=== PATIENT | male | born 1935 | race Caucasian/White ===

== ENCOUNTER 2020-10-25 07:07 | Inpatient (IN) | payer MEDICARE, BC ==
[~2020-10-25] VITALS: Ht 175.3 cm; Wt 95.7 kg
[2020-10-25] MEDS ORDERED: ALFU10TA10 PO (08:15)
[2020-10-25] MEDS ORDERED: ATOR20TA PO (08:15)
[2020-10-25] MEDS ORDERED: APIX5TAB PO (08:15)
[2020-10-25] MEDS ORDERED: POTA10CA43 PO (08:15)
[2020-10-25] MEDS ORDERED: FURO-152 PO (08:15)
[2020-10-25] MEDS ORDERED: LOSA50TA39 PO (08:15)
--- NOTE | 2020-10-25 08:16 | NUR ---
Dr Ortiz at the bedside for MSE.
[2020-10-25 08:24] LABS: HEMATOCRIT 44.2 % (36.7-47.1); MEAN CORPUSCULAR HEMOGLOBIN 32.4 uug (23.8-33.4); PLATELET COUNT (AUTO) 131 K/uL (152-348)
[2020-10-25 08:33] LABS: CARBON DIOXIDE 28 mmol/L (21-32); CHLORIDE 102 mmol/L (98-107); CREATININE 1.4 mg/dL (0.6-1.3); GLUCOSE 133 mg/dL (74-106); POTASSIUM 4.3 mmol/L (3.5-5.1); UREA NITROGEN, BLOOD 16 mg/dL (7-18)
[2020-10-25 08:34] LABS: ABG BASE EXCESS 2.3 mmol/L; ABG HCO3 25.6 mmol/L; ABG PCO2 35.6 mmHg (35.0-45.0); ABG PH 7.474 (7.350-7.450); ABG PO2 76.9 mmHg (75.0-100.0); ABG SITE LEFT RADIAL; ABG TOTAL HEMOGLOBIN 15.3 G/dL (13.5-18.0); COHb 1.3 % (0.5-1.5); MetHb 0.2 % (0.0-1.5); O2Hb 94.6 % (94.0-97.0); VENT MODE Nasal Cannula
[2020-10-25 08:54] LABS: ALANINE AMINOTRANSFERASE 49 U/L (16-63); ALKALINE PHOSPHATASE 76 U/L (50-136); ASPARTATE AMINOTRANSFERASE 42 U/L (15-37); BILIRUBIN,DIRECT 0.2 mg/dL (0.0-0.2); BILIRUBIN,TOTAL 0.7 mg/dL (0.2-1.0); TOTAL PROTEIN, SERUM 6.3 g/dL (6.4-8.2)
[2020-10-25 09:20] LABS: *BILIRUBIN,URIN NEGATIVE (NEGATIVE); *BLOOD, URINE NEGATIVE (NEGATIVE); *CLARITY,URINE CLEAR (CLEAR); *COLOR,URINE YELLOW (YELLOW); *KETONES,URINE NEGATIVE (NEGATIVE); *UROBILINOGEN,URINE 0.2 E.U./dl (NORMAL); LEUKOCYTE ESTERASE ,URINE NEGATIVE (NEGATIVE); NITRITE, URINE NEGATIVE (NEGATIVE); PH,URINE 5.5 (5.0-8.0); UGLUCOSE NEGATIVE (NEGATIVE)
[2020-10-25] MEDS ORDERED: hydrALAZINE HCL 20 MG/1 ML VIAL IV PRN (09:30)
[2020-10-25] MEDS ORDERED: LABETALOL HCL 100 MG/20 ML VIAL IV PRN (09:30)
[2020-10-25] MEDS ORDERED: DEXAMETHASONE SOD PHOSPHATE 4 MG INJ IV ONE (09:45)
[2020-10-25] MEDS ORDERED: AZITHROMYCIN 250 MG TABLET PO ONE (09:45)
[2020-10-25] MEDS ORDERED: CEFTRIAXONE 1 G in IV DEXTROSE 5% 50 ML IV ONE (09:45)
[2020-10-25] MEDS ORDERED: AZITHROMYCIN 250 MG TABLET ONE (09:46)
[2020-10-25] MEDS ORDERED: DEXAMETHASONE SOD PHOSPHATE 10 MG INJ ONE (09:47)
[2020-10-25] MEDS ORDERED: CEFTRIAXONE /D5W 50ML IVPB **ER PYXIS IV ONE (09:47)
--- NOTE | 2020-10-25 09:51 | NUR ---
MUMTAZ FARRIS spoke to DR Shelley for TELE admit.
[2020-10-25] MEDS ORDERED: FLUTICASONE/VILANTEROL 1 EACH BLST.W.DEV INH SCH (10:30)
[2020-10-25] MEDS ORDERED: LOSARTAN POTASSIUM 50 MG TABLET PO SCH (10:30)
[2020-10-25] MEDS ORDERED: ALBUTEROL SULFATE 8 GM HFA.AER.AD IH PRN (10:30)
[2020-10-25] MEDS ORDERED: MAGNESIUM HYDROXIDE 30 ML LIQUID UDC PO PRN (11:45)
[2020-10-25] MEDS ORDERED: ONDANSETRON 4 MG/2 ML VIAL IV PRN (11:45)
[2020-10-25 12:00] VITALS: BP 122/74
--- NOTE | 2020-10-25 12:00 | NUR ---
Received this 85 yo male admission from ER per [facility], with the chief complaint of shortness of breath with cough, congestion, sore throat, fever, body aches. Diagnosis of Covid 19 Pneumonia; Afib. Transferred to bed comfortably. Routine admission care rendered. Awake, alert, oriented x 4, able to move all extremities on purpose and ambulate. Placed on Telemetry - Afib. O2 at 3L/NC with O2 sat of 94%. Poor appetite.
[2020-10-25] MEDS: FUROSEMIDE 20 MG TABLET PO SCH (13:23)
[2020-10-25] MEDS: POTASSIUM CHLORIDE 10 MEQ TAB.PRT.SR PO SCH (13:23)
[2020-10-25] MEDS: APIXABAN 5 MG TABLET PO SCH ×2 (13:24→21:22)
[2020-10-25] MEDS: ACETAMINOPHEN 325 MG TABLET PO PRN (13:49)
[2020-10-25 14:23] LABS: RBC,URINE 0-3 /HPF (0-3); WBC,URINE 0-3 /HPF (0-3)
[2020-10-25 14:24] LABS: BACTERIA,URINE NONE SEEN /HPF (NONE SEEN); SQUAMOUS EPITHELIAL CELL,UR FEW /HPF (NONE SEEN)
[2020-10-25 15:45] VITALS: BP_SYST 101; BP_SYST 140; BP_SYST 148; BP_DIAS 55; BP_DIAS 81
--- NOTE | 2020-10-25 16:00 | NUR ---
Family requested for transfer to [facility]. and CM informed. Process initiated.
[2020-10-25] MEDS ORDERED: LIDOCAINE VISCUS 2% 15 ML UDC MM PRN (16:30)
--- NOTE | 2020-10-25 18:29 | NUR ---
Poor appetite. Complaining of sore throat, will given Lidocaine Viscus. O2 at 3L/NC with O2 sat of 94%, on moderate high back rest.
--- NOTE | 2020-10-25 19:21 | NUR ---
Endorsed to Hanny that Eliquis last given at 1324, to give evening dose at 2100
--- NOTE | 2020-10-25 19:30 | NUR ---
RECEIVED PT AWAKE, ALERT AND ORIENTEDX4. PT IN NO ACUTE RESPIRATORY DISTRESS. IV INTACT. PT ON 3L NASAL CANNULA. PT CAN MAKE HIS NEEDS KNOWN. SAFETY AND COMFORT PROVIDED. WILL CONTINUE TO MONITOR.
[2020-10-25 20:00] VITALS: BP 103/60
--- NOTE | 2020-10-25 23:51 | NUR ---
DR PUENTES NOTIFY REGARDING PT HAD [address] DONALDSON ORDERED TROPONIN IN AM.
--- NOTE | 2020-10-25 23:52 | NUR ---
NOTIFY DR. THOMAS REGRADING PT HAD 2 MINUTES VTACH. GAVE THE RECENT VITAL SIGNS OF 5L OXYGEN NASAL CANNULA, 94% OXYGEN SATURATION TEMPERATURE 98.1, BLOOD PRESSURE OF 141/82 AND PULSE 65.BOTTLE SELECTOR WAS WITH THE PT WHEN PT WENT TO RESTROOM TO DEFECATE AND AFTER COMING BACK TO THE BED, PT FELT DIZZY AND SHOWS SIGNS OF VTACH ON HEART MONITOR. DR. THOMAS ORDERED TO TRANSFER PT TO ICU. GIVE AMIODARONE BOLUS DRIP AND ORDER EKG.
[2020-10-26] VITALS (23 sets, daily range): BP systolic 97–158; BP diastolic 36–98
[2020-10-26] MEDS ORDERED: AMIODARONE HCL IV 150 MG in IV DEXTROSE 5% 100 ML IV ONE (00:45)
--- NOTE | 2020-10-26 01:35 | NUR ---
received from telemetry , s/p rapid response for VT.patient [id number].[email or web address] on the heart monitor to start for amidarone drip . oriented with room and call carvajal and monitor , bedside commode at bedside .pateitn on oxygen at 3 liters/min , sob upon exertion .RR 17 SATURATION 92 %,with dry cough .continue to monitor v/s .patient denies pain .
--- NOTE | 2020-10-26 01:38 | NUR ---
HANDS OFF REPORT TO TRAVIS WARREN. PT IN NO ACUTE DISTRESS. BELONGINGS GIVEN. WHEELED DOWN PT TO CCU. PT IN BED 4.
[2020-10-26] MEDS ORDERED: AMIODARONE HCL 150 MG/3 ML VIAL IV ONE ×2 (01:48→02:19)
--- NOTE | 2020-10-26 02:32 | NUR ---
started amiodarone drip and follow protocol .
--- NOTE | 2020-10-26 02:36 | NUR ---
respiratory therapist at b/s for stat EKG.
[2020-10-26] MEDS: AMIODARONE HCL IV 450 MG in IV DEXTROSE 5% 250 ML IV PRN ×5 (02:45→23:36)
--- NOTE | 2020-10-26 03:00 | NUR ---
offered patient Gomez insertion patient refused .
--- NOTE | 2020-10-26 03:15 | NUR ---
new medication from nursing supervisor knitting . started amiodarone drip .
--- NOTE | 2020-10-26 05:30 | NUR ---
offered Gomez catheter and patient refused .
[2020-10-26 05:34] LABS: HEMATOCRIT 44.2 % (36.7-47.1); MEAN CORPUSCULAR HEMOGLOBIN 32.1 uug (23.8-33.4); MEAN CORPUSCULAR VOLUME 94.3 fL (73.0-96.2); PLATELET COUNT (AUTO) 135 K/uL (152-348)
[2020-10-26 05:39] LABS: BILIRUBIN,TOTAL 0.7 mg/dL (0.2-1.0); CREATININE 1.3 mg/dL (0.6-1.3); PHOSPHOROUS 2.8 mg/dL (2.5-4.9); POTASSIUM 4.4 mmol/L (3.5-5.1); TOTAL PROTEIN, SERUM 6.3 g/dL (6.4-8.2)
--- NOTE | 2020-10-26 07:30 | NUR ---
Received patient from pill maker nurse, patient on 3L nasal cannula saturation 95%, Afib on the monitor, and hemodynamically stable. Inserted franco catheter 500cc urine output noted immediately. Patient education provided division human resources manager light and how to turn TV on. Requested that patient not get out of bed and to use the call light for needs. Safety check performed and all alarms checked.
[2020-10-26] MEDS ORDERED: FUROSEMIDE 40 MG/4 ML VIAL IV ONE (08:30)
[2020-10-26] MEDS: ASPIRIN 81 MG TAB.CHEW PO SCH (08:47)
[2020-10-26] MEDS: FUROSEMIDE 20 MG TABLET PO SCH (08:47)
[2020-10-26] MEDS: POTASSIUM CHLORIDE 10 MEQ TAB.PRT.SR PO SCH (08:48)
[2020-10-26] MEDS: METOPROLOL SUCCINATE XL 50 MG TAB.SR.24H PO SCH (08:48)
[2020-10-26] MEDS: ATORVASTATIN 20 MG TABLET PO SCH (08:48)
[2020-10-26] MEDS: APIXABAN 5 MG TABLET PO SCH ×2 (08:48→17:18)
[2020-10-26] MEDS: DEXAMETHASONE SOD PHOSPHATE 4 MG INJ IV SCH (08:51)
[2020-10-26] MEDS: MAGNESIUM SULFATE/D5W 100 ML IV SCH ×2 (08:52→09:29)
[2020-10-26] MEDS ORDERED: REMDESIVIR (CHARGED) 200 MG in IV NORMAL SALINE 210 ML IV ONE (11:00)
[2020-10-26] MEDS ORDERED: DOXYCYCLINE HYCLATE IV 200 MG in IV DEXTROSE 5% 250 ML IV SCH (11:00)
--- NOTE | 2020-10-26 12:00 | NUR ---
Patient received remdezevir, tolerated well, no arhythmias or hypotension noted.
[2020-10-26] MEDS: ALFUZOSIN HCL 10 MG TAB.SR.24H PO SCH (12:46)
[2020-10-26] MEDS: DOXYCYCLINE HYCLATE IV 100 MG in IV DEXTROSE 5% 100 ML IV SCH ×2 (12:47→22:12)
--- NOTE | 2020-10-26 13:00 | NUR ---
Patient has had multiple liquid stools and stool cdiff sent to lab.
[2020-10-26] MEDS: ENSURE WITH FIBER 237 ML LIQUID (CHOCOLATE) PO SCH ×2 (13:15→17:36)
[2020-10-26] MEDS: LOPERAMIDE HCL 2 MG CAPSULE PO PRN (17:19)
--- NOTE | 2020-10-26 19:45 | NUR ---
Received pt awake, alert and oriented. On 3L NC with O2 sats up to 96%, AFIB on monitor. Pt on amiodarone drip at 1 mg/min per order. HR ranging between 50-60s. F/c intact and patent. Pt noted with intermittent, non-productive cough. HOB elevated. Safety precautions maintained. Continue to monitor pt, continue plan of care.
[2020-10-26] MEDS: ZOLPIDEM 5 MG TABLET PO PRN (20:32)
[2020-10-26] MEDS: HYDROCODONE/APAP 5-325MG TABLET PO PRN (22:12)
[2020-10-27] VITALS (27 sets, daily range): BP systolic 93–176; BP diastolic 34–96
[2020-10-27 05:29] LABS: HEMATOCRIT 45.5 % (36.7-47.1); MEAN CORPUSCULAR VOLUME 94.5 fL (73.0-96.2); PLATELET COUNT (AUTO) 151 K/uL (152-348)
[2020-10-27 05:37] LABS: BILIRUBIN,DIRECT 0.3 mg/dL (0.0-0.2); BILIRUBIN,TOTAL 0.8 mg/dL (0.2-1.0); CREATININE 1.3 mg/dL (0.6-1.3); MAGNESIUM 2.5 mg/dL (1.8-2.4); PHOSPHOROUS 2.6 mg/dL (2.5-4.9); POTASSIUM 4.2 mmol/L (3.5-5.1); TOTAL PROTEIN, SERUM 6.6 g/dL (6.4-8.2)
[2020-10-27] MEDS: AMIODARONE HCL IV 450 MG in IV DEXTROSE 5% 250 ML IV PRN ×2 (06:02→14:47)
--- NOTE | 2020-10-27 06:29 | NUR ---
No significant changes during the night. Pt rested well in between care, Ambien PO given with some effect. Pt remains on 3L NC with O2 sats above 92%, no desats noted. Pt noted with intermittent cough, sputum collected. AFIB on monitor with HR as low as 43 during the night. No acute distress noted. Continue amiodarone drip. Snacks offered, pt with good appetite. AM care done, no new skin breakdown noted. F/C intact and patent. VSS, afebrile. All needs attended. Safety precautions maintained. Continue plan of are.
[2020-10-27] MEDS: ASPIRIN 81 MG TAB.CHEW PO SCH (08:10)
[2020-10-27] MEDS: POTASSIUM CHLORIDE 10 MEQ TAB.PRT.SR PO SCH (08:10)
[2020-10-27] MEDS: ALFUZOSIN HCL 10 MG TAB.SR.24H PO SCH (08:10)
[2020-10-27] MEDS: METOPROLOL SUCCINATE XL 50 MG TAB.SR.24H PO SCH (08:10)
[2020-10-27] MEDS: LOPERAMIDE HCL 2 MG CAPSULE PO PRN (08:10)
[2020-10-27] MEDS: ATORVASTATIN 20 MG TABLET PO SCH (08:10)
[2020-10-27] MEDS: DOXYCYCLINE HYCLATE IV 100 MG in IV DEXTROSE 5% 100 ML IV SCH ×2 (08:11→20:15)
[2020-10-27] MEDS: APIXABAN 5 MG TABLET PO SCH ×2 (08:11→17:57)
[2020-10-27] MEDS: ENSURE WITH FIBER 237 ML LIQUID (CHOCOLATE) PO SCH (08:12)
[2020-10-27] MEDS ORDERED: FUROSEMIDE 20 MG/2 ML VIAL IV ONE (08:15)
[2020-10-27] MEDS: DEXAMETHASONE SOD PHOSPHATE 4 MG INJ IV SCH (08:17)
[2020-10-27] MEDS: FUROSEMIDE 20 MG TABLET PO SCH (08:26)
[2020-10-27] MEDS: HYDROCODONE BIT/HOMATROPINE 5 ML UDC PO PRN ×2 (09:52→17:49)
--- NOTE | 2020-10-27 10:02 | NUR ---
Patient seen by Dr. Shelley, received orders for cough drops.
[2020-10-27] MEDS: REMDESIVIR (CHARGED) 100 MG in IV NORMAL SALINE 100 ML IV SCH (10:48)
[2020-10-27] MEDS: BENZOCAINE/MENTH/CETYLPYRD LOZENGE MM PRN ×3 (10:48→20:15)
--- NOTE | 2020-10-27 16:37 | NUR ---
Notified Dr. Jimenez that patient is having marked bradycardia as low as 38 BPM. Sent tracings from central monitor. Patient is sleeping at this time and has oxygen drop to 89% prior to bridget cardia and when oxygenation picks up the HR picks up. Notified by Dr. Jimenez to continue monitoring no new orders.
[2020-10-27] MEDS: ENSURE ENLIVE (VAN) 240 ML LIQUID PO SCH (17:00)
--- NOTE | 2020-10-27 19:10 | NUR ---
recieived patient awake , able to follow command , with congested productive cough , amiodarone at 0.5 mg , on 1l nc , no fever noted , franco intact
[2020-10-27] MEDS: HYDROCODONE/APAP 5-325MG TABLET PO PRN (20:16)
[2020-10-27] MEDS: ZOLPIDEM 5 MG TABLET PO PRN (20:16)
[2020-10-28] VITALS (10 sets, daily range): BP systolic 112–147; BP diastolic 67–100
[2020-10-28] MEDS: AMIODARONE HCL IV 450 MG in IV DEXTROSE 5% 250 ML IV PRN (00:30)
[2020-10-28 05:11] LABS: HEMATOCRIT 44.3 % (36.7-47.1); MEAN CORPUSCULAR HEMOGLOBIN 32.1 uug (23.8-33.4); MEAN CORPUSCULAR VOLUME 93.5 fL (73.0-96.2); PLATELET COUNT (AUTO) 152 K/uL (152-348)
[2020-10-28 05:30] LABS: BILIRUBIN,DIRECT 0.3 mg/dL (0.0-0.2); BILIRUBIN,TOTAL 0.8 mg/dL (0.2-1.0); CREATININE 1.1 mg/dL (0.6-1.3); POTASSIUM 4.1 mmol/L (3.5-5.1); TOTAL PROTEIN, SERUM 6.2 g/dL (6.4-8.2)
--- NOTE | 2020-10-28 05:58 | NUR ---
patient is awake , able to follow command , denies distress at this time , 1l nc , amiodarone 0.5 mg running , iv intact
[2020-10-28] MEDS: BENZOCAINE/MENTH/CETYLPYRD LOZENGE MM PRN (06:29)
--- NOTE | 2020-10-28 07:45 | NUR ---
Dr. Jimenez in the unit can start amiodarone first dose then DC amiodarone after first PO given. patient can downgrade to tele if needed.
--- NOTE | 2020-10-28 07:45 | NUR ---
Dr. urbina waiting for defibrillator vest that should be delivered today.
[2020-10-28] MEDS ORDERED: FUROSEMIDE 40 MG/4 ML VIAL IV ONE (08:15)
[2020-10-28] MEDS: ATORVASTATIN 20 MG TABLET PO SCH ×2 (09:00→09:23)
[2020-10-28] MEDS: FUROSEMIDE 20 MG TABLET PO SCH ×2 (09:00→09:23)
[2020-10-28] MEDS: ENSURE ENLIVE (VAN) 240 ML LIQUID PO SCH ×3 (09:00→16:53)
[2020-10-28] MEDS: LOSARTAN POTASSIUM 50 MG TABLET PO SCH (09:00)
[2020-10-28] MEDS: ASPIRIN 81 MG TAB.CHEW PO SCH ×2 (09:00→09:24)
[2020-10-28] MEDS: POTASSIUM CHLORIDE 10 MEQ TAB.PRT.SR PO SCH ×2 (09:01→09:22)
[2020-10-28] MEDS: AMIODARONE HCL 200 MG TABLET PO SCH ×2 (09:01→21:16)
[2020-10-28] MEDS: ALFUZOSIN HCL 10 MG TAB.SR.24H PO SCH ×2 (09:02→09:22)
[2020-10-28] MEDS: APIXABAN 5 MG TABLET PO SCH ×2 (09:20→16:52)
--- NOTE | 2020-10-28 09:30 | NUR ---
patient transferred to tele. Report given to Zoila WARREN.
--- NOTE | 2020-10-28 11:00 | NUR ---
Received this transfer CCU. Alert, oriented x 4. Wean off O2, room air with O2 sat of 93%. PT eval initiated, ambulated in the room
[2020-10-28] MEDS: DEXAMETHASONE SOD PHOSPHATE 4 MG INJ IV SCH (11:38)
[2020-10-28] MEDS: DOXYCYCLINE HYCLATE IV 100 MG in IV DEXTROSE 5% 100 ML IV SCH ×2 (12:08→21:16)
[2020-10-28] MEDS: METOPROLOL SUCCINATE XL 50 MG TAB.SR.24H PO SCH (12:25)
[2020-10-28] MEDS: REMDESIVIR (CHARGED) 100 MG in IV NORMAL SALINE 100 ML IV SCH (13:24)
[2020-10-28] MEDS ORDERED: IV NORMAL SALINE 500 ML IV ONE (13:30)
--- NOTE | 2020-10-28 13:30 | NUR ---
Noted desaturation to 85% especially when dozing off. Placed back on 02 at 1 L/NC with O2 sat of 93%
--- NOTE | 2020-10-28 15:00 | NUR ---
NS 500 bolus IV given as ordered
--- NOTE | 2020-10-28 17:55 | NUR ---
O2 at 1L/NC maintained with O2 sat of 91-94%. On moderate high back rest. Afebrile
--- NOTE | 2020-10-28 19:00 | NUR ---
RECEIVED IN BED, ALERT ORIENTED, NO SOB NO CHEST PAIN, ON 1 LITER OF OXYGEN PER MINUTES. PATIENT HAS NO EPISODE OF DESATURATION, TOLERATE WELL 1 LITER OF OXYGEN NC. PATIENT HAS NO COUGH NOTED AT THIS TIME. PATIENT COOPERATIVE WITH CARE
[2020-10-28] MEDS: ZOLPIDEM 5 MG TABLET PO PRN (21:16)
[2020-10-29] MEDS: ACETAMINOPHEN 325 MG TABLET PO PRN ×2 (01:30→08:37)
[2020-10-29 04:40] VITALS: BP 155/96
--- NOTE | 2020-10-29 06:49 | NUR ---
PATIENT ALERT ORIENTED, NO SOB NO CHEST PAIN, ON 1 LITERS NC, SAT 90 TO 99%, NO EPISODE OF COUGHING, AFEBRILE. PATIENT WAS KEPT ON BED REST LAST NIGHT, USES URINAL FOR ELIMINATIONS, CONT TO MONITOR.
[2020-10-29 07:02] LABS: HEMATOCRIT 45.5 % (36.7-47.1); MEAN CORPUSCULAR HEMOGLOBIN 31.9 uug (23.8-33.4); PLATELET COUNT (AUTO) 185 K/uL (152-348)
--- NOTE | 2020-10-29 07:45 | NUR ---
AWAKE ALERT AND ORIENTED X3, NO SS OF PAIN OR SOB SATURATING 99% ON 1 L NC. REMAINS AFIB ON MONITOR
[2020-10-29 08:00] VITALS: BP 158/88
[2020-10-29 08:07] LABS: BILIRUBIN,DIRECT 0.3 mg/dL (0.0-0.2); BILIRUBIN,TOTAL 0.8 mg/dL (0.2-1.0); CREATININE 1.2 mg/dL (0.6-1.3); MAGNESIUM 2.3 mg/dL (1.8-2.4); PHOSPHOROUS 2.7 mg/dL (2.5-4.9); POTASSIUM 3.9 mmol/L (3.5-5.1)
[2020-10-29] MEDS: DOXYCYCLINE HYCLATE IV 100 MG in IV DEXTROSE 5% 100 ML IV SCH (08:36)
[2020-10-29] MEDS: METOPROLOL SUCCINATE XL 50 MG TAB.SR.24H PO SCH ×2 (08:38→08:46)
[2020-10-29] MEDS: ENSURE ENLIVE (VAN) 240 ML LIQUID PO SCH ×3 (08:38→17:01)
[2020-10-29] MEDS: APIXABAN 5 MG TABLET PO SCH ×2 (08:39→17:01)
[2020-10-29] MEDS: AMIODARONE HCL 200 MG TABLET PO SCH (08:40)
[2020-10-29] MEDS: LOSARTAN POTASSIUM 50 MG TABLET PO SCH ×2 (08:40→08:44)
[2020-10-29] MEDS: ASPIRIN 81 MG TAB.CHEW PO SCH (08:44)
[2020-10-29] MEDS: FUROSEMIDE 20 MG TABLET PO SCH (08:45)
[2020-10-29] MEDS: ALFUZOSIN HCL 10 MG TAB.SR.24H PO SCH (08:46)
[2020-10-29] MEDS: ATORVASTATIN 20 MG TABLET PO SCH (08:46)
[2020-10-29] MEDS: POTASSIUM CHLORIDE 10 MEQ TAB.PRT.SR PO SCH (08:46)
[2020-10-29] MEDS ORDERED: LOSA50TA39 PO (09:09)
[2020-10-29] MEDS ORDERED: METO-357 PO (09:09)
[2020-10-29] MEDS ORDERED: FURO-152 PO (09:09)
[2020-10-29] MEDS ORDERED: POTA10CA43 PO (09:09)
[2020-10-29] MEDS ORDERED: ATOR20TA PO (09:09)
[2020-10-29] MEDS ORDERED: AMIO200T6 PO (09:09)
[2020-10-29] MEDS ORDERED: APIX5TAB PO (09:09)
[2020-10-29] MEDS ORDERED: ALBU18HF2 INH (09:12)
[2020-10-29] MEDS ORDERED: DEXA4TAB PO (09:12)
[2020-10-29] MEDS: DEXAMETHASONE SOD PHOSPHATE 4 MG INJ IV SCH (10:23)
[2020-10-29] MEDS: REMDESIVIR (CHARGED) 100 MG in IV NORMAL SALINE 100 ML IV SCH (10:23)
--- NOTE | 2020-10-29 10:30 | NUR ---
SEEN BY DR PEREIRA AND SAID OK FOR DC FAR CARDIAC STANDPOINT BUT NEEDS LIFE PACK VEST BEFORE GOING HOME WITH INSTRUCTION
--- NOTE | 2020-10-29 11:38 | NUR ---
SEEN BY HOSPITALIST PLAN DC TODAY. SEE NOTES
[2020-10-29 12:00] VITALS: BP 136/77
[2020-10-29 16:00] VITALS: BP 140/86
--- NOTE | 2020-10-29 16:52 | NUR ---
SPOKE WITH PATIENT ABOUT THE IMPORTANCE OF LIFE VEST PACK TO BE APPLIED BEFORE GOING HOME AND THAT WE CAN INITIATE AND SAID NO "I HAVE A REGISTERED NURSE AT HOME AND KNOWS WHAT TO DO HE WILL DO IT FOR ME ITS TOO COMPLICATED AND I UNDERSTAND THE RISK BUT I WANT TO GO NOW" DR SWIFT NOTIFIED. INSTRUCTED PATIENT TO CALL WHEN HE ARRIVES HOME TO CALL [facility] [phone] FOR SUPPORT FOR HELP
--- NOTE | 2020-10-29 17:45 | NUR ---
DISCHARGED HOME STABLE VIA AMBULANCE WITH FOLLOW-UP AND MEDICATION INSTRUCTION GIVEN TO PATIENT. LIFFE VEST PACK INSTRUCTION GIVEN TO PATIENT AND AMBULANCE
== END 2020-10-29 17:45 | disposition home or self-care (01) | DRG 177 ==
LOC: ER 07:07 → TELE3 11:22 → CCU 10-26 01:20 → TELE3 10-28 09:16 → TELE-TD3 10-28 10:06
PROVIDERS: ADMIT Internal Medicine; ATTEND Internal Medicine
PROC: XW033E5 Introduction of Remdesivir Anti-infective into Peripheral Vein, Percutaneous Approach, New Technology Group 5 (ICD-10-PCS; principal; 2020-10-26)
DX: U07.1 COVID-19 (principal); J12.82 Pneumonia due to coronavirus disease 2019; J96.01 Acute respiratory failure with hypoxia; I50.33 Acute on chronic diastolic (congestive) heart failure; N17.9 Acute kidney failure, unspecified; I47.2 Ventricular tachycardia; I48.20 Chronic atrial fibrillation, unspecified; E78.5 Hyperlipidemia, unspecified; I25.10 Atherosclerotic heart disease of native coronary artery without angina pectoris; Z79.01 Long term (current) use of anticoagulants; Z79.82 Long term (current) use of aspirin; Z96.651 Presence of right artificial knee joint; I11.0 Hypertensive heart disease with heart failure; E66.9 Obesity, unspecified; Z68.31 Body mass index [BMI] 31.0-31.9, adult; J18.9 Pneumonia, unspecified organism; J20.9 Acute bronchitis, unspecified
CPT/HCPCS: 36415; 36600; 70030-TC; 71045; 83605; 83615; 83735; 84100; 85025; 85610; 85730; 86140; 87040; 87070; 87400; 93005; 93307; 97161; A4663; G0378; J0282; J0696; J1100; J1940; J3475; J3490; J3535; J7040; J7050; J7060; J8499; Q0144